=== PATIENT | male | born 1945 ===

== ENCOUNTER 2017-11-19 09:49 | Day surgery (SDC) | payer MEDICAID ==
[2017-10-01 02:11] VITALS: BMI 23.4
[2017-11-19] MEDS ORDERED: cefTRIAXone 1 gm 1 GM/100 ML BAG IVPB ONE (11:44)
[2017-11-19] MEDS ORDERED: Lidocaine 2% Jelly (Uro-Jet) ONE (11:45)
[2017-11-19] MEDS ORDERED: Propofol 10 mg/ml Inj (20 ML) ONE ×2 (12:52→13:02)
[2017-11-19] MEDS ORDERED: Midazolam 2 MG/2 ML VIAL ONE (12:52)
[2017-11-19] MEDS ORDERED: Oxycodone/Acetaminophen 5/325 mg Tab PO PRN (12:53)
[2017-11-19] MEDS ORDERED: Morphine 4 MG/ML VIAL IVP PRN (13:33)
[2017-11-19 15:10] VITALS: O2SAT 97
[2017-11-19 16:02] VITALS: BP 137/82; PULSE 68; RESP 20; TEMP 97.6
--- NOTE | 2017-11-19 17:06 | RAD ---
PROCEDURE: HISTORY: As Above COMPARISON: TECHNIQUE: Total fluoroscopic time utilized during the procedure: 2.4 seconds. Total dose 0.84279 mGy cm squared FINDINGS: Submitted images from the current procedure: 2 Please refer to the physician's notes performing the procedure. IMPRESSION: Less than 1 hour fluoroscopic time utilized during performance of the procedure
--- NOTE | 2017-11-20 00:14 | HP ---
REASON FOR ADMISSION: The patient is readmitted for cystoscopy with IOU and change of cystotomy tube. HISTORY OF PRESENT ILLNESS: A very pleasant gentleman who is 72 years old. He has prostate cancer. He is undergoing treatment with radiation. He developed urethral stricture. We could not get a Haines in. We did a cystostomy tube. He came today for cystoscopy with IOU now that he has been drained and little more controlled in nonemergency situation. We are going to try and do a cystoscopy with IOU and also change his cystostomy tube. I explained to the patient there is a great chance for recovering, transposition has occurred and then we can discuss the idea of urethral reconstruction. Right now he is in treatment for his prostate cancer, we are going to finish the radiation therapy, but we are going to try to give an IOU now today. PAST MEDICAL HISTORY AND SURGICAL HISTORY: As listed in the chart. No history of an VT or CVA. SOCIAL HISTORY: Unremarkable. . REVIEW OF SYSTEMS: As detailed above, noncontributory. Weight loss, etc. MEDICATIONS: See the chart. ALLERGIES: NONE. PHYSICAL EXAMINATION: GENERAL: A well-nourished male, in no apparent distress. VITAL SIGNS: Within normal limits. LUNGS: Clear. ABDOMEN: Soft and nontender, flat. There is a cystostomy tube in good location, draining well, clear urine. It looks to be clean and dry. GENITALIA: The patient has a normal ____ at discharge. No testicular mass. RECTAL: Deferred. LABORATORY DATA: See chart. DIAGNOSES: 1. Prostate cancer. 2. Urinary retention. 3. Urethral stricture disease. 4. Hematuria. PLAN: The plan is as follows. I discussed the options with the patient today. We are going to a cystoscopy with Internal Optical Urethrotomy and then we are also going to change the cystostomy tube. We will see how the patient does. We may teach the patient CIC. He has a very thick scar. ADDENDUM: We did the procedure. We were able to do an IOU, get a Haines catheter from below. However, it is a very thick stricture, so we are going to leave this in, get him dilated up to 20 and we will discuss further options. Chuck Wheeler MD [facility] # [phone]
--- NOTE | 2017-11-20 06:51 | OP ---
PROCEDURE DATE: PREOPERATIVE DIAGNOSES: Urinary retention, prostate cancer, urethral stricture disease, hematuria, voiding dysfunction. POSTOPERATIVE DIAGNOSES: Urinary retention, prostate cancer, urethral stricture disease, hematuria, voiding dysfunction. PROCEDURES: Cystoscopy, internal optical urethrotomy of a urethral stricture, change of the cystostomy tube and cystogram. SURGEON: Chuck Wheeler MD. COMPLICATIONS: None. FINDINGS: 1. Normal meatus. 2. There was a urethral stricture, it was very tight and a pendulous urethra beyond the fossa navicularis much more proximal before the prostate. It was about 1 cm in length and it was very thick, but once we cut it the rest of the urethra was normal. 3. Verumontanum is notably visually occlusive. 4. The bladder is moderately heavily trabeculated. 5. The cystostomy tube is in good location both pre and post. INDICATIONS: See history and physical for further details. A very pleasant gentleman, who is here for the above. I am going to recommend to the patient to consider urethral reconstruction at some point, but first we would just want to get him through to make sure he is ANDREA and in the meantime we are going to teach him probably CIC once we are sure that he can urinate and then at that time, we will remove the cystostomy tube. In the meanwhile, the patient is here for the above procedure. DESCRIPTION OF PROCEDURE: After obtaining informed consent, the patient was placed on the table. Routine monitors were placed. Time-out was called. We confirmed the patient positioning. We tried through the urethra first and what we identified was urethral stricture in the pendulous urethra, when we see the picture it is a really thick stricture, really not even pinpointed. it is more closed and pinpoint. Just gently, carefully, slowly, meticulously with the sensor wire, we were able to get the wire in under fluoroscopic imaging and once it slid its way in and we knew we were in the bladder which we confirmed with the fluoroscopic imaging, we then were able to cut. We used a cold knife, it was a very thick scar. We cut anteriorly, but it was really thick, I cannot emphasize that enough. Once we did this, the rest was within normal limits. . The bladder was moderately trabeculated. The cystostomy tube from the prior cystostomy tube is balloon there. Subsequently, of course I am going to change it and put a new balloon and new bag in, etc. But at this point, once we did this and we were in, we went to do the cysto and internal optical urethrotomy, we then opened up and we inserted a Haines catheter via urethra a 16 [place]. We under sterile technique inserted a new Haines catheter via the suprapubic going from 12 to 14. We confirmed our positioning with the cystogram. The patient tolerated the procedure well without complications. ADDENDUM: My plan is to dilate the urethra below, get up to 20 in the office. My plan is also from above to maybe get to a 16 or 18 and then plug it and see if the patient can urinate. Eventually, I think he needs a urethral stricture reconstruction; I discussed this with him at length, but we will see if he can get to the city or somewhere else to get to a reconstruction expert. Chuck Wheeler MD
== END 2017-11-19 16:00 | disposition home or self-care (01) ==
LOC: C.SDS 09:49
PROVIDERS: ATTEND Urology
DX: C61 Malignant neoplasm of prostate (principal); R33.9 Retention of urine, unspecified; R31.29 Other microscopic hematuria; N35.9 Urethral stricture, unspecified
CPT/HCPCS: 52276; 82948; C1769; J0696; J2270